=== PATIENT | male | born 1970 | race Caucasian/White ===

== ENCOUNTER 2022-02-03 07:04 | Emergency (ER) | payer OTHER ==
[2022-02-03] MEDS ORDERED: Ondansetron ODT 4 MG TAB ONE (07:23)
[2022-02-03 14:58] LABS: SARS-CoV-2 PCR by NAA Not Detected (NotDetected)
== END 2022-02-03 08:36 | disposition home or self-care (01) ==
LOC: ERS 07:04
DX: J22 Unspecified acute lower respiratory infection (principal); I10 Essential (primary) hypertension; Z20.822 Contact with and (suspected) exposure to COVID-19
CPT/HCPCS: 71045; 87804; Q0162; U0003; U0005

== ENCOUNTER 2024-04-05 04:38 | Emergency (ER) | payer BC, SELFPAY ==
[2024-04-05 05:02] LABS: #Basophils 0.03 10x3/uL (0.0-0.2); %Basophils 0.5 % (0.0-1.0); %Eosinophils 4.2 % (0.0-10.0); %Lymphocytes 23.7 % (21.0-51.0); %Monocytes 10.3 % (0.0-10.0); %Neutrophils 60.8 % (42.0-75.0); Hematocrit 44.7 % (42.0-52.0); Hemoglobin 15.9 g/dL (14.0-18.0); Mean Corpuscular HGB CONC 35.6 g/dL (32.0-36.0); Mean Corpuscular Hemoglobin 35.4 pg (27.0-31.0); Mean Corpuscular Volume 99.6 fL (78.0-98.0); Mean Platelet Volume 9.5 fL (7.4-10.4); Platelet Count 178 10x3/uL (130-400); RBC Distribution Width 12.9 % (11.5-14.5); Red Blood Cell (RBC) Count 4.49 mill/uL (4.70-6.10)
[2024-04-05 05:40] LABS: ALT (SGPT) 134 U/L (8-55); AST (SGOT) 144 U/L (5-34); Albumin 3.5 g/dL (3.5-5.0); Alkaline Phosphatase 136 U/L (40-110); Anion Gap 16 mmol/L (10-20); BUN (Urea Nitrogen) 12 mg/dL (8.4-25.7); Bilirubin, Total 0.8 mg/dL (0.2-1.2); Calc. Creatinine Clearance 0 mL/min (70-130); Calcium 9.3 mg/dL (7.8-10.44); Carbon Dioxide 27 mmol/L (22-29); Chloride 98 mmol/L (98-107); Estimated GFR 70; Globulin 4.2 g/dL (2.4-3.5); Glucose 308 mg/dL (70-105); Magnesium 1.5 mg/dL (1.6-2.6); Potassium 3.1 mmol/L (3.5-5.1); Protein, Total 7.7 g/dL (6.0-8.3); Sodium 138 mmol/L (136-145)
[2024-04-05] MEDS ORDERED: Potassium Chloride 20 MEQ TAB ONE (06:39)
[2024-04-05] MEDS ORDERED: Aspirin Chewable 81 MG TAB ONE (06:40)
[2024-04-05] MEDS ORDERED: Nitroglycerin 0.4 MG TAB 1 EACH ONE (06:40)
[2024-04-05] MEDS ORDERED: Magnesium 2 GM/50 ML BAG (IN WATER) ONE (06:41)
[2024-04-05 07:17] LABS: Bacteria/HPF None Seen HPF (None Seen); Bilirubin Negative (Negative); Blood, Urine Negative (Negative); CAUTI Indications for Culture Fever or rigors; Clarity Clear (Clear); Glucose, Urine (Dipstick) Greater than 1000 mg/dL (Negative); Influenza A by NAA Not Detected (NotDetected); Influenza B by NAA Not Detected (NotDetected); Ketone, Urine Negative (Negative); Leukocyte Negative Leu/uL (Negative); Nitrite Negative (Negative); Protein, Urine (Dipstick) 20 mg/dL (Neg-Trace); RBC/HPF 0-3 HPF (0-3); SARS-CoV-2 NAA Rapid Test Not Detected (NotDetected); Squamous Epithelial None Seen HPF (0-3); Urobilinogen Normal mg/dL (Less than 2); WBC/HPF 0-3 HPF (0-3); pH, Urine 6.5 (5.0-9.0)
[2024-04-05 07:18] LABS: Urine Culture Reflex No No
== END 2024-04-05 07:59 | disposition home or self-care (01) ==
LOC: ERS 04:38
DX: R05.9 Cough, unspecified (principal); I10 Essential (primary) hypertension; F17.220 Nicotine dependence, chewing tobacco, uncomplicated; Z55.0 Illiteracy and low-level literacy
CPT/HCPCS: 71045; 80053; 81001; 83605; 83735; 83880; 84484; 85025; 87040; 87077; 87086; 87149; 93005; 96374; J3475